=== PATIENT | male | born 2000 | race Asian ===

== ENCOUNTER 2024-03-07 08:15 | Emergency (ER) | payer OTHER ==
[~2024-03-07] VITALS: Ht 167.6 cm; Wt 70.8 kg
[2024-03-07 11:57] VITALS: BP 111/67; TEMP 97; O2SAT 98
== END 2024-03-07 12:06 | disposition home or self-care (01) ==
LOC: M ED 08:15
DX: T33.71XA Superficial frostbite of right knee and lower leg, initial encounter (principal); T33.72XA Superficial frostbite of left knee and lower leg, initial encounter; Y92.9 Unspecified place or not applicable; Y93.9 Activity, unspecified

== ENCOUNTER 2024-04-27 09:50 | Emergency (ER) | payer OTHER ==
[~2024-04-27] VITALS: Ht 167.6 cm; Wt 75.1 kg
[2024-04-27 13:14] VITALS: BP 131/77; TEMP 96.8; O2SAT 100
== END 2024-04-27 13:27 | disposition short-term general hospital (02) ==
LOC: M ED 09:50
DX: S01.511A Laceration without foreign body of lip, initial encounter (principal); W22.8XXA Striking against or struck by other objects, initial encounter; Y92.9 Unspecified place or not applicable; Y93.89 Activity, other specified; Y99.9 Unspecified external cause status

== ENCOUNTER 2024-06-10 10:55 | Emergency (ER) | payer OTHER ==
[~2024-06-10] VITALS: Ht 165.1 cm; Wt 73.9 kg
[2024-06-10 10:59] VITALS: TEMP 97.6
[2024-06-10 12:20] LABS: BASO # 0.1 10^3/uL (0.0-0.2); BASO % 0.5 % (0.0-1.0); EOS # 0.1 10^3/uL (0.0-0.5); EOS % 0.8 % (0.0-3.0); HEMATOCRIT 46.1 % (42.0-52.0); HEMOGLOBIN 15.9 g/dl (13.5-17.5); LYMPH % 19.8 % (24.0-44.0); MEAN CORPUSCULAR HEMOGLOBIN 30.7 pg (27.0-33.0); MEAN CORPUSCULAR HGB CONC 34.5 g/dl (32.0-36.5); MONO # 0.9 10^3/uL (0.0-0.8); MONO % 9.1 % (2.0-8.0); NEUTROPHILS % 69.1 % (36.0-66.0); PLATELET COUNT, AUTOMATED 301 10^3/uL (150-450); RED BLOOD COUNT 5.18 10^6/uL (4.30-6.10); WHITE BLOOD COUNT 10.1 10^3/uL (4.0-10.0)
[2024-06-10 12:41] LABS: LIPASE 32 U/L (12-53)
[2024-06-10 12:42] LABS: CK-MB VALUE MASS < 1.0 NG/ML (<3.6)
[2024-06-10 12:44] LABS: ALBUMIN 4.1 G/DL (3.2-5.2); ALKALINE PHOSPHATASE 91 U/L (40-129); ALT/SGPT 21 U/L (7.0-40); AST/SGOT 16 U/L (<34); BILIRUBIN,DIRECT 0.3 MG/DL (<0.4); BILIRUBIN,TOTAL 1.1 MG/DL (0.3-1.2); BLOOD UREA NITROGEN 11 MG/DL (9-23); CALCIUM LEVEL 9.5 MG/DL (8.5-10.1); CARBON DIOXIDE LEVEL 31 MMOL/L (20-31); CHLORIDE LEVEL 106 MMOL/L (98-107); CREATININE FOR GFR 0.84 MG/DL (0.70-1.30); GLOMERULAR FILTRATION RATE > 90.0 (>60); GLUCOSE, FASTING 103 MG/DL (60-100); POTASSIUM SERUM 4.4 MMOL/L (3.5-5.1); SODIUM LEVEL 143 MMOL/L (136-145); TOTAL PROTEIN 7.4 G/DL (5.7-8.2)
[2024-06-10 12:49] LABS: CPK CREATINE PHOSPHOKINASE 65 U/L (46-171); MB/CK RELATIVE INDEX 1.53 (< OR =4)
[2024-06-10] MEDS: IPRATROPIUM 0.5MG/ALBUTEROL 2.5MG INH SOL UD 3ML NEB ONE (13:23)
[2024-06-10] MEDS ORDERED: VENTAER INH (13:53)
[2024-06-10] MEDS ORDERED: BREAMIS10 MC (13:53)
[2024-06-10 14:05] VITALS: BP 112/74; O2SAT 98
== END 2024-06-10 14:06 | disposition home or self-care (01) ==
LOC: M ED 10:55
DX: R07.89 Other chest pain (principal); R06.02 Shortness of breath